=== PATIENT | female | born 1940 | race Hispanic/Latino ===

== ENCOUNTER 2017-09-19 08:43 | Outpatient (CLI) | payer MEDICARE ==
--- NOTE | 2017-09-19 09:33 | XRay Report ---
XRAY BILATERAL KNEE FOUR VIEWS EACH: 09/19/17 08:43:00 CLINICAL: Knee pain. FINDINGS: Right: Medial joint space narrowing and small medial and lateral osteophytes. Patellofemoral joint arthritis with osteophytes. Greater narrowing of the lateral patellar joint space. No joint effusion. No fracture or dislocation. Normal soft tissues. Left: Medial joint space narrowing and small medial and lateral osteophytes. Patellofemoral joint arthritis with osteophytes. No joint effusion. No fracture or dislocation. Normal soft tissues. IMPRESSION: Moderate bilateral osteoarthritis.
== END 2017-09-19 08:44 | disposition home or self-care (01) ==
LOC: SPVIMAG 08:43
PROVIDERS: ATTEND Orthopaedic Surgery
DX: M17.0 Bilateral primary osteoarthritis of knee (principal); M25.762 Osteophyte, left knee; M25.761 Osteophyte, right knee